=== PATIENT | male | born 1950 | race African-American/Black ===

== ENCOUNTER 2016-12-27 00:26 | Inpatient (IN) | payer OTHER ==
[2016-12-27] VITALS (8 sets, daily range): BP systolic 87–106; BP diastolic 44–70
[~2016-12-27] VITALS: Ht 182.9 cm; Wt 63.5 kg
[2016-12-27] MEDS ORDERED: [UNRECOGNIZED DRUG - OTHER] TOP (00:39)
[2016-12-27] MEDS ORDERED: SILVADENE20 GM TOP (00:40)
[2016-12-27] MEDS ORDERED: LORAZEPAM 22 MG/1 ML IM (00:41)
[2016-12-27] MEDS ORDERED: VITAMIN B-1100 M1 PER TUBE (00:41)
[2016-12-27] MEDS ORDERED: BENADRYL ALLERG25 MG PER TUBE (00:42)
[2016-12-27] MEDS ORDERED: GLUTOSE GEL 1515 G1 PER TUBE (00:42)
[2016-12-27] MEDS ORDERED: ORADENT 0.1% DEN5 G1 TOP (00:44)
[2016-12-27] MEDS ORDERED: HUMALOG100 UNIT/2 SUBQ (00:45)
[2016-12-27] MEDS ORDERED: ROBITUSSIN100 MG/53 PER TUBE ×2 (00:45→00:48)
[2016-12-27] MEDS ORDERED: DUONEB 2.5-0.5 M3 ML INH (00:46)
[2016-12-27] MEDS ORDERED: JEVITY 1.5 CAL237 ML PER TUBE (00:47)
[2016-12-27] MEDS ORDERED: MAGOX 400400 MG PER TUBE (00:48)
[2016-12-27] MEDS ORDERED: RESTORIL15 M1 PER TUBE (00:49)
[2016-12-27 02:20] LABS: HEMATOCRIT 30.1 % (42.0-52.0); HEMOGLOBIN 9.7 gm/dL (14.0-18.0); MCH 26.7 pg (26.0-34.0); MCHC 32.3 g/dL (28.0-37.0); MCV 82.9 fL (80.0-100.0); PLATELET COUNT 276 thou/uL (150-400); RBC 3.63 mil/uL (4.50-6.00); RDW 19.8 % (10.5-14.5); WBC 17.2 thou/uL (4.0-11.0)
[2016-12-27 02:21] LABS: MANUAL DIFF YES
[2016-12-27 02:29] LABS: CALCIUM 9.2 mg/dL (8.5-10.1); CREATININE 1.6 mg/dL (0.7-1.3); POTASSIUM 3.6 mmol/L (3.5-5.1)
[2016-12-27 02:30] LABS: INR 1.1; PROTIME 11.1 Seconds (9.3-11.4)
[2016-12-27 02:53] LABS: ABSOLUTE NEUTROPHILS 10.3 thou/uL (1.4-8.2); ANISOCYTOSIS 2+; TOTAL CELL COUNT 100
[2016-12-28] VITALS: BP 109/66
[2016-12-28 03:36] LABS: HEMATOCRIT 26.7 % (42.0-52.0); HEMOGLOBIN 8.7 gm/dL (14.0-18.0); MCH 27.1 pg (26.0-34.0); MCHC 32.6 g/dL (28.0-37.0); MCV 83.3 fL (80.0-100.0); RBC 3.21 mil/uL (4.50-6.00); RDW 19.4 % (10.5-14.5)
[2016-12-28 03:59] LABS: ALBUMIN 2.1 g/dL (3.4-5.0); CALCIUM 9.2 mg/dL (8.5-10.1); CREATININE 1.6 mg/dL (0.7-1.3); TOTAL BILIRUBIN 0.6 mg/dL (<0.1-1.0)
[2016-12-28 05:00] VITALS: BP 105/61
[2016-12-28 08:00] VITALS: BP 94/66
[2016-12-28] MEDS ORDERED: CEFUROXIME250 MG PER TUBE (09:47)
== END 2016-12-28 13:00 | DRG 393 ==
LOC: ER 00:26 → EROBS 02:17 → 4N 02:17 → EROBS 11:19 → 4N 12:27
PROVIDERS: Emergency Medicine; Hospitalist
PROC: 0D20XUZ Change Feeding Device in Upper Intestinal Tract, External Approach (ICD-10-PCS; principal; 2016-12-27)
DX: K94.23 Gastrostomy malfunction (principal); N17.0 Acute kidney failure with tubular necrosis; E43 Unspecified severe protein-calorie malnutrition; I42.9 Cardiomyopathy, unspecified; Z68.1 Body mass index [BMI] 19.9 or less, adult; Y83.8 Other surgical procedures as the cause of abnormal reaction of the patient, or of later complication, without mention of misadventure at the time of the procedure; E86.0 Dehydration; J40 Bronchitis, not specified as acute or chronic; D72.829 Elevated white blood cell count, unspecified; E11.9 Type 2 diabetes mellitus without complications; Z86.73 Personal history of transient ischemic attack (TIA), and cerebral infarction without residual deficits; Y92.89 Other specified places as the place of occurrence of the external cause; Z86.711 Personal history of pulmonary embolism; Z28.21 Immunization not carried out because of patient refusal
CPT/HCPCS: 10091

== ENCOUNTER 2016-12-29 02:30 | Inpatient (IN) | payer OTHER ==
[~2016-12-29] VITALS: Ht 188 cm; Wt 70.4 kg
[2016-12-29] VITALS (7 sets, daily range): BP systolic 118–132; BP diastolic 69–77
--- NOTE | ~2016-12-29 | HC ---
[facility] [place] [address] CONSULTATION Name: BETTY JUDD Room #: 445-P [facility] IN M.R.#: [id number] Admission: 12/29/16 Attend Phys: Betty Fernández DO Discharge: Date of : 52 Report #: [id number] THIS REPORT FOR: //name// CC: NEAL physician/PCP Betty Fernández DATE OF SERVICE: 12/29/2016 REASON FOR CONSULTATION: Dislodged trach. IMPRESSION: 1. Dislodged tracheostomy with replacement with a #6 Shiley instead of the #8 that was in. He is tolerating this. 2. PEG tube. 3. History of PE. 4. History of CVA. 5. Diabetes. PLAN: Continue aerosol therapy. Leave in current trach. We will follow with you. Chest x-ray in the a.m. HISTORY OF PRESENT ILLNESS: This is a 66-year-old male admitted as his trach came out by report and a #6 was placed. He is tolerating this at present. On 12/27, the PEG tube was actually only taken out by report by the patient. PAST MEDICAL HISTORY: ALLERGIES: No known. MEDICATIONS: Included Lactinol, Silvadene, vitamin B, Ativan, Benadryl, Robitussin, DuoNeb, Jevity and Restoril. SOCIAL HISTORY: Per chart, negative tobacco and negative ETOH. REVIEW OF SYSTEMS: History of PE, respiratory failure, diabetes, cardiomyopathy, cerebrovascular disease and anemia. PHYSICAL EXAMINATION: EYES: Negative icterus. NECK: Negative JVD. Trachea: Trach in place. LUNGS: Coarse. HEART: Regular. ABDOMEN: Bowel sounds present. EXTREMITIES: Show no edema. He relates he does not recall taking out the trach. [facility] [address] [place] [address] CONSULTATION Name: BETTY JUDD Room #: 445-P ADM IN .R.#: [id number] Admission: 12/29/16 Attend Phys: Betty Fernández DO Discharge: Date of : 52 Report #: [id number] LABORATORY DATA: Labs and x-rays were reviewed. Chest x-ray showed no acute. Trach tube in good position. pH 7.4, pCO2 38, pO2 of 130 on 50%. By: [id number] Gloria Fontenot MD /nt
--- NOTE | ~2016-12-29 | HC ---
[facility] [place] [address] CONSULTATION Name: BETTY JUDD Room #: 445-P [facility] IN M.R.#: [id number] Admission: 12/29/16 Attend Phys: Betty Fernández DO Discharge: Date of : 52 Report #: [id number] THIS REPORT FOR: //name// CC: NEAL physician/PCP Betty Fernández REQUESTING PHYSICIAN: Dr. Cespedes. REASON FOR CONSULTATION: Palliative care. Thank you for the consultation. As you know, the patient is a 66-year-old male who presented approximately 2 days prior for a dislodged tracheotomy and additionally dislodged feeding tube, which was apparently of the patient's own volition. He was previously a resident at [facility]. Has a history of chronic hypoxic respiratory failure again, necessitating the tracheostomy. The patient appears to have some aspect of dementia, although baseline is unknown at this time. Unfortunately, I was unable to contact his power of insurance defense attorney and also unfortunately we do not know if he does have a power of insurance defense attorney or guardian set up. According to records, he does have a sister, whom I attempted to contact, but the number apparently was the patient's own cell phone number. When I asked the patient about this history, the patient reported that he did not attempt to pull his own devices and seemed confused about being at the hospital in the first place. The patient was oriented to self only. The patient was able to tell me that he had a brother named, Morris, and another brother named, Esvin, and that he came from [place] and that most of his family lived in the [place] area. He denies any suicidal ideation. The patient unfortunately at this time does not appear to have capacity for decision making. PAST MEDICAL HISTORY: Significant for chronic hypoxic respiratory failure, dementia of unknown origin, pulmonary embolism, gastrostomy tube, type 2 diabetes, congestive heart failure of unknown type, CKD, cerebrovascular disease, anemia. PAST SURGICAL HISTORY: Tracheostomy, gastrostomy tube, otherwise unknown. FAMILY HISTORY: Unknown. SOCIAL HISTORY: The patient reports two brothers, Morris was apparently his decision maker per his report, although on his records, it lists his sister. Unknown on smoking history or alcohol intake or any other history with regard to family. He denies having children. CODE STATUS: Currently full code. MEDICATIONS: Unknown prior medications at this time. [address] [address] CONSULTATION Name: BETTY JUDD Room #: 445-P [facility] IN ..#: [id number] Admission: 12/29/16 Attend Phys: Betty Fernández DO Discharge: Date of : 52 Report #: [id number] ALLERGIES: No known drug allergies. REVIEW OF SYSTEMS: The patient denies fevers, chills, nausea, vomiting, constipation or diarrhea. Denies abdominal pain, chest pain, shortness of breath, cough, wheezing. PHYSICAL EXAMINATION: VITAL SIGNS: Includes temperature 36.3, pulse 56, respirations 20, blood pressure 133/74 and 100% on his current trach shield. GENERAL: The patient appears to be alert. He does respond, although he appears to be confused. He does have good attention level. HEENT: Extraocular muscles appear to be intact. No scleral icterus noted. CARDIOVASCULAR: Regular rate and rhythm without murmur. LUNGS: Appear to be clear to auscultation bilaterally. No wheezes, rales or rhonchi. ABDOMEN: Soft, nontender to palpation x 4. Positive bowel sounds noted in all 4 quadrants. NEUROLOGIC: As per previous, I do believe the patient to have evidence of dementia. On exam, it is difficult to say what is preexisting extent was. ASSESSMENT AND PLAN: The patient is a 66-year-old male with the following medical concerns. 1. Acute on chronic hypoxic respiratory failure. This appears to be due to self-removal of trach site. Unfortunately, I was not able to contact anyone with potential power of insurance defense attorney for this patient. We will attempt to get information from Tatyana Crook in order to have more informed discussion with family member regarding future care. Certainly, I do think that this is worrisome given his most recent attempt. We will continue to follow. 2. Dementia, unknown type. Again, I believe this is affecting his ability to have capacity over his decision making. Again, we will try to contact his durable power of insurance defense attorney. <ELECTRONICALLY SIGNED> By: Marlo Coelho DO 01/07/17 [id number] Mralo Coelho DO /nt
[~2016-12-29 02:30] MED LIST: BENADRYL ALLERG25 MG PER TUBE; CEFUROXIME250 MG PER TUBE; DUONEB 2.5-0.5 M3 ML INH; GLUTOSE GEL 1515 G1 PER TUBE; HUMALOG100 UNIT/2 SUBQ; JEVITY 1.5 CAL237 ML PER TUBE; LORAZEPAM 22 MG/1 ML IM; MAGOX 400400 MG PER TUBE; ORADENT 0.1% DEN5 G1 TOP; RESTORIL15 M1 PER TUBE; ROBITUSSIN100 MG/53 PER TUBE; SILVADENE20 GM TOP; VITAMIN B-1100 M1 PER TUBE; [UNRECOGNIZED DRUG - OTHER] TOP
[2016-12-29 08:36] LABS: ABG SAMPLE TYPE ARTERIAL; BE(vivo) -1.1 mmol/L (-2 to +3); HCO3 23.5 mmol/L (22.0-26.0); LACTATE 1.18 mmol/L (0.5-2.0); O2(CT) 12.8 mL/dL (15.0-23.0); O2Hb 96.9 % (92.0-98.0); PCO2 38.4 mmHg (35.0-45.0); PO2 130.1 mmHg (80.0-100.0); pH 7.404 (7.360-7.450); sO2 98.6 % (92.0-98.0); tCO2 24.6 mmol/L (24.0-30.0)
[2016-12-29 16:04] LABS: STICK SITE R.RADIAL
[2016-12-30 04:12] VITALS: BP 133/76
[2016-12-30 06:44] LABS: HEMATOCRIT 24.4 % (42.0-52.0); HEMOGLOBIN 8.3 gm/dL (14.0-18.0); MCH 27.9 pg (26.0-34.0); MCHC 33.8 g/dL (28.0-37.0); MCV 82.5 fL (80.0-100.0); RBC 2.96 mil/uL (4.50-6.00); RDW 18.9 % (10.5-14.5)
[2016-12-30 07:02] LABS: CALCIUM 9.1 mg/dL (8.5-10.1); CREATININE 1.2 mg/dL (0.7-1.3); POTASSIUM 3.6 mmol/L (3.5-5.1)
[2016-12-30 07:28] VITALS: BP 140/72
[2016-12-30] MEDS ORDERED: ATIVAN0.5 MG PER TUBE (15:34)
[2016-12-30 16:05] VITALS: BP 128/72
[2016-12-30 19:33] VITALS: BP 138/95
[2016-12-31 03:28] VITALS: BP 141/76
[2016-12-31 05:59] LABS: HEMATOCRIT 24.7 % (42.0-52.0); HEMOGLOBIN 8.4 gm/dL (14.0-18.0); MCH 27.8 pg (26.0-34.0); MCHC 33.8 g/dL (28.0-37.0); MCV 82.3 fL (80.0-100.0); RBC 3.01 mil/uL (4.50-6.00); RDW 18.9 % (10.5-14.5)
[2016-12-31 06:11] LABS: POTASSIUM 3.3 mmol/L (3.5-5.1)
[2016-12-31 08:40] VITALS: BP 130/59
[2016-12-31 16:41] VITALS: BP 151/92
[2016-12-31 21:09] VITALS: BP 127/82
[2017-01-01 00:37] VITALS: BP 133/91
[2017-01-01 05:16] VITALS: BP 132/84
[2017-01-01 07:41] VITALS: BP 133/74
[2017-01-01 19:45] VITALS: BP 128/68
[2017-01-02 04:45] VITALS: BP 144/94
[2017-01-02 08:30] VITALS: BP 109/82
[2017-01-02 16:10] VITALS: BP 121/81
[2017-01-02 20:18] VITALS: BP 119/71
[2017-01-03 05:02] LABS: HEMOGLOBIN 8.6 gm/dL (14.0-18.0); MCH 26.9 pg (26.0-34.0); MCHC 33.1 g/dL (28.0-37.0); MCV 81.3 fL (80.0-100.0); RBC 3.2 mil/uL (4.50-6.00); RDW 18.7 % (10.5-14.5); WBC 12.2 thou/uL (4.0-11.0)
[2017-01-03 05:08] VITALS: BP 91/65
[2017-01-03 05:09] LABS: CALCIUM 9.2 mg/dL (8.5-10.1); CREATININE 1.2 mg/dL (0.7-1.3)
[2017-01-03 07:25] VITALS: BP 89/56
[2017-01-03 15:53] VITALS: BP 94/67
[2017-01-03 19:55] VITALS: BP 107/76
[2017-01-03 23:40] VITALS: BP 111/74
[2017-01-04 03:40] VITALS: BP 115/72
[2017-01-04 08:14] VITALS: BP 115/72
[2017-01-04 16:20] VITALS: BP 117/77
[2017-01-04 20:11] VITALS: BP 1229/76
[2017-01-05 06:16] LABS: HEMATOCRIT 25.6 % (42.0-52.0); HEMOGLOBIN 8.5 gm/dL (14.0-18.0); MCH 27.4 pg (26.0-34.0); MCHC 33.3 g/dL (28.0-37.0); MCV 82.2 fL (80.0-100.0); RBC 3.12 mil/uL (4.50-6.00); RDW 19.3 % (10.5-14.5); WBC 5.2 thou/uL (4.0-11.0)
[2017-01-05 06:29] LABS: CALCIUM 9.6 mg/dL (8.5-10.1); CREATININE 1.1 mg/dL (0.7-1.3); POTASSIUM 4.2 mmol/L (3.5-5.1)
[2017-01-05 12:00] VITALS: BP 110/68
[2017-01-05 18:15] VITALS: BP 117/73
[2017-01-05 20:47] VITALS: BP 113/89
[2017-01-06 04:33] VITALS: BP 131/75
[2017-01-06 05:07] VITALS: BP 131/75
[2017-01-06 09:18] VITALS: BP 105/67
[2017-01-06 16:51] VITALS: BP 119/62
[2017-01-06 21:34] VITALS: BP 114/79
[2017-01-07 03:46] VITALS: BP 126/66
[2017-01-07 08:14] VITALS: BP 136/85
[2017-01-07 15:29] VITALS: BP 107/90
[2017-01-07 21:30] VITALS: BP 105/72
[2017-01-08 04:54] VITALS: BP 144/88
[2017-01-08 08:00] VITALS: BP 123/79
[2017-01-08] MEDS ORDERED: ACETAMINOPHEN325 M1 PO (13:06)
[2017-01-08] MEDS ORDERED: DEPAKENE250 MG/5 M PER TUBE (13:07)
[2017-01-08] MEDS ORDERED: [UNRECOGNIZED DRUG - OTHER] PER TUBE ×2 (13:07→13:15)
[2017-01-08] MEDS ORDERED: LORAZEPAM 0.50.5 M1 PER TUBE (13:08)
== END 2017-01-08 17:41 | DRG 205 ==
LOC: ER 02:30 → 4S 03:19 → EROBS 03:19 → 4S 03:56
PROVIDERS: Hospitalist; Internal Medicine Pulmonary Disease; Nurse Practitioner Family
DX: J95.03 Malfunction of tracheostomy stoma (principal); G93.40 Encephalopathy, unspecified; J96.21 Acute and chronic respiratory failure with hypoxia; Z43.1 Encounter for attention to gastrostomy; N18.9 Chronic kidney disease, unspecified; I50.9 Heart failure, unspecified; F03.90 Unspecified dementia, unspecified severity, without behavioral disturbance, psychotic disturbance, mood disturbance, and anxiety; Y83.8 Other surgical procedures as the cause of abnormal reaction of the patient, or of later complication, without mention of misadventure at the time of the procedure; E11.9 Type 2 diabetes mellitus without complications; Z86.711 Personal history of pulmonary embolism; Z86.73 Personal history of transient ischemic attack (TIA), and cerebral infarction without residual deficits; Z72.89 Other problems related to lifestyle; Z79.4 Long term (current) use of insulin; Z79.899 Other long term (current) drug therapy; Z28.21 Immunization not carried out because of patient refusal
CPT/HCPCS: 10100